=== PATIENT | male | born 1985 | race Hispanic/Latino ===

== ENCOUNTER 2016-10-12 20:00 | Emergency (ER) | payer OTHER ==
[~2016-10-12] VITALS: Ht 175.3 cm; Wt 76.2 kg
[2016-10-12 20:18] VITALS: BP 106/60
--- NOTE | 2016-10-12 21:11 | ED THROAT/DENTAL COMPLAINT ---
History of Present Illness General Chief Complaint: Headache Stated Complaint: JUAREZ S/P TOOTH EXTRACTION Source: patient Exam Limitations: no limitations Vital Signs & Intake/Output Vital Signs & Intake/Output Vital Signs Date Time Temp Pulse Resp B/P Pulse O2 O2 Flow FiO2 Ox Delivery Rate 10/12 2017 98.5 70 20 106/60 97 Room Air Allergies Coded Allergies: lactose (Intermediate, GI UPSET 10/12/16) Uncoded Allergies: CATS MOLD COCKROACHES (10/12/16) Reconcile Medications Augmentin (Augmentin 500-125 Tablet) 500 MG-125 MG TABLET 1 TAB PO BID DENTAL PAIN Meloxicam (Mobic) 15 MG TABLET 1 TAB PO DAILY PRN PAIN Triage Note: TRIAGE: PT TO ER C/C PAIN TO FRONT OF FACE AND RT SIDE OF FACE S/P DENTAL EXTRACTION YESTERDAY. HAS NOT TRIED ANY OTC PAIN MEDICATIONS BECAUSE "WE WERE JUST OUT, THEY DIDN'T HAVE ANY IN THE HOUSE". Triage Nurses Notes Reviewed? yes Onset: Gradual Duration: constant Timing: recent history Severity: moderate Severity Numbers: 5 HPI: Patient is a 31-year-old male who presents emergent seen at yesterday patient had a right upper tooth extraction in which she states that since he has been complaining of persistent pain however patient has not taken any medications for symptoms. No medications were prescribed to patient. Patient is able tolerate by mouth denies any fever chills. (JASPER COOK) Past History Travel History Traveled to [place] past 21 day No Medical History Any Pertinent Medical History? 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 No (JASPER COOK) Review of Systems Review of Systems Constitutional: Reports: no symptoms. EENTM: Reports: see HPI, throat pain. Respiratory: Reports: no symptoms. Cardiovascular: Reports: no symptoms. GI: Reports: no symptoms. Genitourinary: Reports: no symptoms. Musculoskeletal: Reports: no symptoms. Skin: Reports: no symptoms. Neurological/Psychological: Reports: no symptoms. Hematologic/Endocrine: Reports: no symptoms. Immunologic/Allergic: Reports: no symptoms. All Other Systems: Reviewed and Negative (JASPER COOK) Physical Exam Physical Exam General Appearance: no apparent distress, alert, comfortable Mouth/Throat: pharynx normal, dental tenderness Skin: intact Comments: Well-developed well-nourished no apparent distress. HEENT: Atraumatic, extraocular motion intact Neck: Supple, no lymphadenopathy Back: Nontender Respiratory: No respiratory distress Extremities: No edema, full range of motion Neuro: Alert and oriented x3 Psych: Mood affect normal, normal memory normal judgment. Diagram Dental: 1) Noted fully extracted tooth with mild surrounding swelling and tenderness no abscess no fluctuance no discharge Core Measures ACS in differential dx? No Severe Sepsis Present: No Septic Shock Present: No (JASPER COOK) Progress Differential Diagnosis: aspirated tooth, carious tooth, epiglottitis, Ludwigs angina, meningitis, odontogenic abscess, anastacia-tonsillar abscess, pharyngeal for. body, stomatitis/gingivitis, strep pharyngitis, tooth fracture Plan of Care: Upon discharge patient looks well no apparent distress and will comply with discharge instructions and had no questions (JASPER COOK) Departure Departure Disposition: HOME OR SELF CARE Condition: Stable Clinical Impression Primary Impression: Pain, dental Referrals: PATIENT HAS NO PRIMARY CARE DR (PCP/Family) Additional Instructions: As discussed begin the prescription of MOBIC for pain and inflammation. Begin the prescription of Augmentin for infection prevention. If you note worsening symptoms of pain and swelling or developing new concerning symptom return to emergency room immediately. Prescription is waiting at [facility] pharmacy. Follow-up with your dentist as directed. Departure Forms: Customer Survey General Discharge Information Prescriptions: Current Visit Scripts Meloxicam (Mobic) 1 TAB PO DAILY PRN PAIN #15 TAB Augmentin (Augmentin 500-125 Tablet) 1 TAB PO BID #14 TAB (JASPER COOK) PA/PARADICHLOROBENZENE TENDER Co-Sign Statement Statement: ED Attending supervision documentation- [] I saw and evaluated the patient. I have also reviewed all the pertinent lab results and diagnostic results. I agree with the findings and the plan of care as documented in the PA's/PARADICHLOROBENZENE TENDER's documentation. x I have reviewed the ED Record and agree with the PA's/PARADICHLOROBENZENE TENDER's documentation. [] Additions or exceptions (if any) to the PAs/PARADICHLOROBENZENE TENDER's note and plan are summarized below: [] (BRYAN CARDONA,JOSESITO)
[2016-10-12] MEDS ORDERED: AUGMENTIN 500-1 EACH PO (21:17)
[2016-10-12] MEDS ORDERED: MOBIC15 M1 PO (21:17)
[2017-01-29] MEDS ORDERED: GABAPENTIN300 M2 PO (12:27)
[2017-01-29] MEDS ORDERED: BUPROPION XL150 MG PO (12:28)
[2017-01-29] MEDS ORDERED: VALACYCLOVIR500 M1 PO (12:43)
== END 2016-10-12 21:27 ==
LOC: ERH 20:00
DX: K08.89 Other specified disorders of teeth and supporting structures (principal)

== ENCOUNTER 2016-11-14 05:30 | Emergency (ER) | payer OTHER ==
[~2016-11-14] VITALS: Ht 175.3 cm; Wt 77.1 kg
[~2016-11-14 05:30] MED LIST: AUGMENTIN 500-1 EACH PO; MOBIC15 M1 PO
[2016-11-14 05:34] VITALS: BP 132/68
--- NOTE | 2016-11-14 05:47 | ED INFLUENZA/URI COMPLAINT ---
History of Present Illness General Chief Complaint: Sore Throat, Dental Pain Stated Complaint: FEVER, COUGH, SORE THROAT, JUAREZ PER PT Source: patient, old records Exam Limitations: no limitations Vital Signs & Intake/Output Vital Signs & Intake/Output Vital Signs Date Time Temp Pulse Resp B/P Pulse O2 O2 Flow FiO2 Ox Delivery Rate 11/14 0534 99.5 97 18 132/68 95 Room Air Allergies Coded Allergies: lactose (Intermediate, GI UPSET 10/12/16) Uncoded Allergies: CATS MOLD COCKROACHES (10/12/16) Reconcile Medications Augmentin (Augmentin 500-125 Tablet) 500 MG-125 MG TABLET 1 TAB PO BID DENTAL PAIN Meloxicam (Mobic) 15 MG TABLET 1 TAB PO DAILY PRN PAIN Triage Note: PT FROM HOME C/O FLU LIKE SYMPTOMS?. PER PT COUGH BEGAN SUNDAY AND PROGRESSIVELY BECAME WORSE WITH BROWN SPUTUM. PT STATES THAT HE TOOK TYLENOL FOR THE FEVER. PT VSS AND IN NO ACUTE DISTRESS, PT ALSO STATES CHEST TIGHTNESS FROM COUGHING. AWAITING PROVIDER EVAL Triage Nurses Notes Reviewed? yes HPI: Patient comes in with fevers chills myalgias and productive cough worsening since yesterday. The fevers have been subjective. Productive cough with brown sputum. Positive sick contacts. No nausea or vomiting. Patient states that he is getting an achy pain in his chest which is exacerbated with cough. There is no pain when he is not coughing. There is no radiation of the pain. The pain is mild on the scale. Past History Travel History Traveled to [place] past 21 day No Medical History Any Pertinent Medical History? 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 No Review of Systems Review of Systems Constitutional: Reports: see HPI, chills, fever. EENTM: Reports: no symptoms. Respiratory: Reports: see HPI, cough, sputum production. Cardiovascular: Reports: see HPI, chest pain. GI: Reports: no symptoms. Genitourinary: Reports: no symptoms. Musculoskeletal: Reports: see HPI, muscle pain. Skin: Reports: no symptoms. Neurological/Psychological: Reports: no symptoms. Hematologic/Endocrine: Reports: no symptoms. Immunologic/Allergic: Reports: no symptoms. All Other Systems: Reviewed and Negative Physical Exam Physical Exam General Appearance: well developed/nourished, alert, awake, mild distress Head: atraumatic, normal appearance Eyes: Bilateral: PERRL, EOMI. Ears, Nose, Throat: normal ENT inspection, moist mucous membrane, hearing grossly normal Neck: normal inspection, supple, full range of motion Respiratory: normal breath sounds, chest non-tender, no respiratory distress, lungs clear Cardiovascular: regular rate/rhythm, normal peripheral pulses Gastrointestinal: normal bowel sounds, soft, non-tender, no organomegaly Back: normal inspection, normal range of motion Extremities: normal inspection, normal capillary refill, normal range of motion, no edema Neurologic/Psych: no motor/sensory deficits, awake, alert, oriented x 3, normal gait, normal mood/affect Skin: intact, normal color, warm/dry Lymphatic: no anterior cervical gui Core Measures Severe Sepsis Present: No Septic Shock Present: No Progress Differential Diagnosis: influenza, pneumonia Plan of Care: Orders Procedure Date/time Status RAPID VIRAL INFLUENZA A 11/15 543 Complete Microbiology 11/14 544 NASOPHARYN: Influenza Virus A & B Rapid Smear - COMP Diagnostic Imaging: Viewed by Me: Radiology Read. Discussed w/RAD: Radiology Read. CXR Impression: PATIENT: EBONIE BACK PRESENT AGE: 31 PATIENT ACCOUNT NO: [id number] : 87 LOCATION: [facility] ORDERING PHYSICIAN: ALESIA HAYNES MD SERVICE DATE: 11/14/16 EXAM TYPE: RAD - XRY-CHEST XRAY, PA AND LATERAL EXAMINATION: XR CHEST CLINICAL INFORMATION: Cough and fever COMPARISON: None TECHNIQUE: 2 views of the chest were obtained. FINDINGS: No significant abnormality is noted involving the heart, lungs, mediastinum, bony thorax or soft tissues. IMPRESSION: No acute change of the chest. DICTATED BY: BRENDEN ALICEA MD DATE/TIME DICTATED:11/14/16606 SUPERVISOR GRIPS:UNRULY DATE/TIME TRANSCRIBED:11/14/16606 CONFIDENTIAL, DO NOT COPY WITHOUT APPROPRIATE AUTHORIZATION. <Electronically signed in Other Vendor System> SIGNED BY: BRENDEN ALICEA MD 11/14/16 0611 Initial ED EKG: none Comments: Patient states whenever he gets an infection he gets a general herpes outbreak and he does not have a prescription for Valtrex. Departure Departure Disposition: HOME OR SELF CARE Condition: Stable Clinical Impression Primary Impression: Bronchitis Secondary Impressions: Encounter for smoking cessation counseling Referrals: PATIENT HAS NO PRIMARY CARE DR (PCP/Family) Additional Instructions: You need to stop smoking take amoxil as prescribed take cough medicine as needed. It has codeine in it so do not drive after taking it. Departure Forms: Customer Survey General Discharge Information Prescriptions: Current Visit Scripts Amoxicillin 1 CAP PO TID #30 CAP Valacyclovir Hydrochloride (Valtrex) 1 TAB PO BID #10 TAB
--- NOTE | 2016-11-14 06:11 | RADIOLOGY REPORT ---
EXAMINATION: XR CHEST CLINICAL INFORMATION: Cough and fever COMPARISON: None TECHNIQUE: 2 views of the chest were obtained. FINDINGS: No significant abnormality is noted involving the heart, lungs, mediastinum, bony thorax or soft tissues. IMPRESSION: No acute change of the chest.
[2016-11-14] MEDS ORDERED: VALTREX500 M1 PO (06:18)
[2016-11-14] MEDS ORDERED: AMOXICILLIN500 M2 PO (06:18)
[2017-01-29] MEDS ORDERED: GABAPENTIN300 M2 PO (12:27)
[2017-01-29] MEDS ORDERED: BUPROPION XL150 MG PO (12:28)
[2017-01-29] MEDS ORDERED: VALACYCLOVIR500 M1 PO (12:43)
== END 2016-11-14 06:26 ==
LOC: ERH 05:30
DX: J40 Bronchitis, not specified as acute or chronic (principal); Z71.6 Tobacco abuse counseling; F17.200 Nicotine dependence, unspecified, uncomplicated
CPT/HCPCS: 87804; 87804-59